=== PATIENT | male | born 1960 | race Caucasian/White ===

== ENCOUNTER 2018-04-18 09:29 | Emergency (ER) | payer MEDICAID ==
[~2018-04-18] VITALS: Ht 188 cm; Wt 72.7 kg
[~2018-04-18 09:29] MED LIST: BACI3.5O22 TP; DIVA500T52 PO; QUET200T PO; SERT100T12 PO
[2018-04-18 10:13] LABS: BASOPHILS % (AUTO) 0.7 % (0.0-2.0); EOSINOPHILS % (AUTO) 1.6 % (1.0-6.0); HEMATOCRIT 43.6 % (41-53); HEMOGLOBIN 15.1 g/dL (13.5-17.5); LYMPHOCYTES % (AUTO) 32.3 % (22.0-44.0); MEAN CORPUSCULAR HEMOGLOBIN 28.9 pg (26.0-34.0); MEAN CORPUSCULAR HGB CONC 34.6 G/dL (31.0-37.0); MEAN CORPUSCULAR VOLUME 84 fL (80-100); MONOCYTES # (AUTO) 0.8 K/uL (0.1-1.0); MONOCYTES % (AUTO) 12.2 % (2.0-9.0); NEUTROPHILS # (AUTO) 3.3 K/uL (1.8-7.7); NEUTROPHILS % (AUTO) 53.2 % (40.0-70.0); PLATELET COUNT (AUTO) 253 K/uL (150-450); RED BLOOD CELL COUNT(AUTO) 5.21 MIL/uL (4.50-5.90); RED CELL DISTRIBUTION WIDTH 13.8 % (11.5-14.5)
[2018-04-18 10:20] LABS: ANION GAP 5 mmol/L (8-16); CARBON DIOXIDE 29 mmol/L (22-29); CHLORIDE 102 mmol/L (98-107); POTASSIUM 3.9 mmol/L (3.5-5.1); SODIUM SERUM 136 mmol/L (136-145)
[2018-04-18 10:41] LABS: ALANINE AMINOTRANSFERASE 43 U/L (12-78); ALBUMIN 3.6 g/dL (3.4-5.0); ALKALINE PHOSPHATASE 64 U/L (46-116); ASPARTATE AMINOTRANSFERASE 25 U/L (15-37); BILIRUBIN,TOTAL 1.2 mg/dL (0.1-1.0); CALCIUM, TOTAL 8.8 mg/dL (8.8-10.5); CREATININE 0.95 mg/dL (0.60-1.30); GLOMERULAR FILTR. RATE CALC > 60 mL/min (>60); GLUCOSE,RANDOM 97 mg/dL (70-110); TOTAL PROTEIN, SERUM 8.3 g/dL (6.4-8.2); UREA NITROGEN, BLOOD 9 mg/dL (7-18)
[2018-04-18 10:42] LABS: VALPROIC ACID < 3 mcg/mL (50-100)
[2018-04-18 12:21] VITALS: BP 124/79
== END 2018-04-18 12:23 | disposition home or self-care (01) ==
LOC: EMS 09:30
DX: G47.00 Insomnia, unspecified (principal); F41.9 Anxiety disorder, unspecified; F20.9 Schizophrenia, unspecified; R51 Headache; F17.210 Nicotine dependence, cigarettes, uncomplicated; Z59.0 Homelessness
CPT/HCPCS: 36415; 80053; 80164; 85025; 99284; G0480

== ENCOUNTER → 2018-08-21 | Emergency (ER) | payer MEDICAID, OTHER ==
[~2018-08-21] VITALS: Ht 188 cm; Wt 81.8 kg
[2018-08-21] MEDS: SODIUM CHLORIDE 0.9% 1,000 ML IV ONE (12:58)
[2018-08-21] MEDS: ONDANSETRON HCL 4 MG/2 ML VIAL IVP ONE (12:58)
[2018-08-21] MEDS: KETOROLAC TROMETHAMINE 30 MG/ML VIAL IVP ONE (12:58)
[2018-08-21 13:07] LABS: BASOPHILS % (AUTO) 0.5 % (0.0-2.0); EOSINOPHILS % (AUTO) 4.3 % (1.0-6.0); HEMATOCRIT 43.2 % (41-53); HEMOGLOBIN 14.6 g/dL (13.5-17.5); LYMPHOCYTES % (AUTO) 32.6 % (22.0-44.0); MEAN CORPUSCULAR HEMOGLOBIN 27.6 pg (26.0-34.0); MEAN CORPUSCULAR HGB CONC 33.8 G/dL (31.0-37.0); MEAN CORPUSCULAR VOLUME 82 fL (80-100); MONOCYTES # (AUTO) 0.7 K/uL (0.1-1.0); MONOCYTES % (AUTO) 10.8 % (2.0-9.0); NEUTROPHILS # (AUTO) 3.1 K/uL (1.8-7.7); NEUTROPHILS % (AUTO) 51.8 % (40.0-70.0); PLATELET COUNT (AUTO) 244 K/uL (150-450); RED BLOOD CELL COUNT(AUTO) 5.28 MIL/uL (4.50-5.90); RED CELL DISTRIBUTION WIDTH 15.5 % (11.5-14.5)
[2018-08-21 13:22] LABS: ANION GAP 9 mmol/L (8-16); CALCIUM, TOTAL 8.8 mg/dL (8.8-10.5); CARBON DIOXIDE 29 mmol/L (22-29); CHLORIDE 100 mmol/L (98-107); CREATININE 0.71 mg/dL (0.60-1.30); GLOMERULAR FILTR. RATE CALC > 60 mL/min (>60); GLUCOSE,RANDOM 75 mg/dL (70-110); POTASSIUM 4.3 mmol/L (3.5-5.1); SODIUM SERUM 138 mmol/L (136-145); UREA NITROGEN, BLOOD 15 mg/dL (7-18)
[2018-08-21 13:28] LABS: ALANINE AMINOTRANSFERASE 33 U/L (12-78); ALBUMIN 3.5 g/dL (3.4-5.0); ALKALINE PHOSPHATASE 72 U/L (46-116); ASPARTATE AMINOTRANSFERASE 26 U/L (15-37); BILIRUBIN,TOTAL 0.6 mg/dL (0.1-1.0); LIPASE 163 U/L (73-393)
[2018-08-21 13:49] LABS: APPEARANCE,URINE CLEAR (CLEAR); BILIRUBIN,URINE NEGATIVE (NEGATIVE); GLUCOSE, URINE (UA) NEGATIVE (NEGATIVE); KETONES,URINE NEGATIVE (NEGATIVE); LEUKOCYTE ESTERASE ,URINE NEGATIVE (NEGATIVE); NITRATE,URINE NEGATIVE (NEGATIVE); OCCULT BLOOD,URINE NEGATIVE (NEGATIVE); PH,URINE 5.5 (5.0-8.0); PROTEIN,URINE NEGATIVE (NEGATIVE); UROBILINOGEN,URINE 0.2 mg/dL (<=1.0)
[2018-08-21 14:22] VITALS: BP 159/67
== END | disposition home or self-care (01) ==
LOC: EMS 11:09
DX: R11.2 Nausea with vomiting, unspecified (principal); R19.7 Diarrhea, unspecified; F20.9 Schizophrenia, unspecified; F17.210 Nicotine dependence, cigarettes, uncomplicated; Z59.0 Homelessness; R10.9 Unspecified abdominal pain
CPT/HCPCS: 36415; 80053; 81003; 83690; 85025; 96361; 96374; 96375; 99283; J1885; J2405; J7030

== ENCOUNTER 2018-08-31 20:20 | Emergency (ER) | payer OTHER ==
[~2018-08-31] VITALS: Ht 188 cm; Wt 72.7 kg
[2018-08-31 20:21] VITALS: BP 143/98
[2018-08-31] MEDS ORDERED: CLON.5 PO (20:28)
[2018-08-31] MEDS ORDERED: THIA100T67 PO (20:28)
== END 2018-08-31 23:00 | disposition left against medical advice (07) ==
LOC: EMS 20:21
DX: F41.9 Anxiety disorder, unspecified (principal); F43.9 Reaction to severe stress, unspecified; F20.9 Schizophrenia, unspecified; F17.210 Nicotine dependence, cigarettes, uncomplicated; Z53.21 Procedure and treatment not carried out due to patient leaving prior to being seen by health care provider

== ENCOUNTER 2018-09-14 13:01 | Emergency (ER) | payer OTHER ==
[~2018-09-14] VITALS: Ht 188 cm; Wt 72.7 kg
[~2018-09-14 13:01] MED LIST changes: -BACI3.5O22 TP; +CLON.5 PO; -DIVA500T52 PO; -QUET200T PO; +THIA100T67 PO
[2018-09-14 14:31] VITALS: BP 139/70
== END 2018-09-14 14:34 | disposition home or self-care (01) ==
LOC: EMS 13:03
DX: F41.9 Anxiety disorder, unspecified (principal); F20.9 Schizophrenia, unspecified; F17.210 Nicotine dependence, cigarettes, uncomplicated; Z79.899 Other long term (current) drug therapy; Z59.0 Homelessness

== ENCOUNTER 2018-10-26 05:45 | Emergency (ER) | payer OTHER ==
[~2018-10-26] VITALS: Ht 188 cm; Wt 70.5 kg
[2018-10-26 05:49] VITALS: BP 135/98
== END 2018-10-26 06:17 | disposition left against medical advice (07) ==
LOC: EMS 05:45
DX: Z00.00 Encounter for general adult medical examination without abnormal findings (principal); Z53.21 Procedure and treatment not carried out due to patient leaving prior to being seen by health care provider

== ENCOUNTER 2018-11-03 15:39 | Emergency (ER) | payer OTHER ==
[~2018-11-03] VITALS: Ht 188 cm; Wt 72.7 kg
[2018-11-03] MEDS ORDERED: ClonazePAM 1 MG TABLET PO ONE (16:30)
[2018-11-03 17:00] VITALS: BP 124/64
== END 2018-11-03 17:42 | disposition home or self-care (01) ==
LOC: EMS 15:41
DX: F25.9 Schizoaffective disorder, unspecified (principal); R10.9 Unspecified abdominal pain; Z76.0 Encounter for issue of repeat prescription; Z59.0 Homelessness

== ENCOUNTER 2018-11-24 13:19 | Emergency (ER) | payer OTHER ==
[~2018-11-24] VITALS: Ht 185.4 cm; Wt 77.3 kg
[2018-11-24 13:23] VITALS: BP 135/92
== END 2018-11-24 13:53 | disposition left against medical advice (07) ==
LOC: EMS 13:22
DX: S91.052A Open bite, left ankle, initial encounter (principal); F20.9 Schizophrenia, unspecified; F17.210 Nicotine dependence, cigarettes, uncomplicated; Z59.0 Homelessness; W54.0XXA Bitten by dog, initial encounter; Y93.89 Activity, other specified; Y92.89 Other specified places as the place of occurrence of the external cause; Y99.8 Other external cause status

== ENCOUNTER 2018-11-28 11:44 | Emergency (ER) | payer OTHER ==
[~2018-11-28] VITALS: Ht 185.4 cm; Wt 77.3 kg
[2018-11-28 11:49] VITALS: BP 139/89
== END 2018-11-28 13:58 | disposition left against medical advice (07) ==
LOC: EMS 11:44
DX: F41.9 Anxiety disorder, unspecified (principal); F20.9 Schizophrenia, unspecified; F17.210 Nicotine dependence, cigarettes, uncomplicated; Z76.0 Encounter for issue of repeat prescription; Z53.21 Procedure and treatment not carried out due to patient leaving prior to being seen by health care provider

== ENCOUNTER 2018-11-30 14:11 | Emergency (ER) | payer OTHER ==
[~2018-11-30] VITALS: Ht 188 cm; Wt 72.7 kg
[2018-11-30 14:14] VITALS: BP 143/90
== END 2018-11-30 16:00 | disposition left against medical advice (07) ==
LOC: EMS 14:12
DX: Z76.0 Encounter for issue of repeat prescription (principal); Z53.21 Procedure and treatment not carried out due to patient leaving prior to being seen by health care provider

== ENCOUNTER 2018-12-02 13:00 | Emergency (ER) | payer OTHER | END 2018-12-02 15:24 | disposition left against medical advice (07) | LOC: EMS 13:00 | DX: F20.9 Schizophrenia, unspecified (principal); F41.9 Anxiety disorder, unspecified; M62.838 Other muscle spasm; F17.210 Nicotine dependence, cigarettes, uncomplicated; Z59.0 Homelessness ==

== ENCOUNTER 2018-12-02 17:29 | Emergency (ER) | payer OTHER ==
[~2018-12-02] VITALS: Ht 188 cm; Wt 70.5 kg
[2018-12-02] MEDS ORDERED: ACETAMINOPHEN 500 MG TABLET PO ONE (18:30)
[2018-12-02] MEDS ORDERED: CYCLOBENZAPRINE HCL 10 MG TABLET PO ONE (18:30)
[2018-12-02 19:12] VITALS: BP 131/87
== END 2018-12-02 19:50 | disposition left against medical advice (07) ==
LOC: EMS 17:29
DX: M62.838 Other muscle spasm (principal); G47.62 Sleep related leg cramps; R45.851 Suicidal ideations; F20.9 Schizophrenia, unspecified; F17.210 Nicotine dependence, cigarettes, uncomplicated; Z59.0 Homelessness